=== PATIENT | female | born 1960 | race Caucasian/White ===

== ENCOUNTER → 2016-11-01 | Outpatient (CLI) | payer OTHER ==
[~2016-11-01] MED LIST: ACEPHEN650 MG PR; FAMOTIDINE PO; FERRO-TIME325 MG PO; FERROUS GLUCON324 M2; MAPAP325 M1 PO; PROTONIX PO
--- NOTE | ~2016-11-01 | MY6 ---
[facility] A Service of [facility] RADIOLOGY TEXT RESULTS PATIENT: NITHYA ZHAO LOCATION: [facility] : 60 UNIT #: [id number] AGE: [address]: Armando Emerson MD SEX: F ORDER DR: [id number] [place], [place] [address] [id number] O MR#: [id number] Acc #: [id number] NAME: NITHYA ZHAO : 1960 SEX: F STUDY DATE/TIME: 11/01/2016 9:25 UNIT: [facility] ROOM: STUDY DESCRIPTION: MY Mammogram Dx Dig [place] Attending Physician: Armando Emerson M.D. Ordering Physician: Armando Emerson M.D. Primary Care Physician: Armando Emerson M.D. MEDICAL IMAGING REPORT This report is preliminary unless electronic signature is present EXAQM Bilateral digital diagnostic mammogram INDICATIONS Focal asymmetry in the right breast and calcifications in the left breast on screening mammogram. TECHNIQUE Bilateral CC and MLO views. Spot compression views of the right breast in the CC and MLO projections and spot magnification views of the left breast in the CC and true lateral projection. Images obtained on a digital mammography unit FDA-approved CAD device utilized. COMPARISON 05/05/2016 FINDINGS Asymmetric tissue in the anterior right breast at the 12 o'clock position is not completely effaced, but has the appearance of benign breast tissue. No definite mass is seen. Focal calcifications in the upper outer quadrant of the left breast have a benign coarse morphology and there is no associated mass seen. Scattered fibroglandular density. Targeted ultrasound of the right breast shows some dense breast tissue in this region but no suspicious mass. IMPRESSION Benign bilateral diagnostic mammogram. Recommend patient continue with yearly screening. [facility] A Service [facility] RADIOLOGY TEXT RESULTS PATIENT: NITHYA ZHAO LOCATION: [facility] : 60 UNIT #: [id number] AGE: [address]: Armando Emerson MD SEX: F ORDER DR: Patient's over the age of 40 are entered into a reminder system with target due date for the next mammogram. A result letter will be sent to the patient. BIRADS: 2 Benign findings. Dictated by... Shaggy Xie M.D. THIS IS AN ELECTRONICALLY VERIFIED REPORT Shaggy Xie M.D. at 11/02/2016 7:05 AM EED/to TD: 11/01/2016 13:18 JOB #: [id number] MEDICAL IMAGING REPORT Page 1 of 1 COPY
--- NOTE | ~2016-11-01 | US24 ---
[facility] A Service of [facility] RADIOLOGY TEXT RESULTS PATIENT: NITHYA ZHAO LOCATION: [facility] : 60 UNIT #: [id number] AGE: [address]: Armando Emerson MD SEX: F ORDER DR: [id number] [facility] [address] [place], [place] [address] [id number] O MR#: [id number] Acc #: [id number] NAME: NITHYA ZHAO : 1960 SEX: F STUDY DATE/TIME: 11/01/2016 10:09 UNIT: [facility] ROOM: STUDY DESCRIPTION: US Breast Unilateral Attending Physician: Armando Emerson M.D. Ordering Physician: Armando Eemrson M.D. Primary Care Physician: Armando Emerson M.D. MEDICAL IMAGING REPORT This report is preliminary unless electronic signature is present EXAM Right breast ultrasound INDICATION Mammographic abnormality. PROCEDURE Shabazz-scale imaging of the right breast 12 o'clock in area of concern. COMPARISON Concurrently performed diagnostic mammogram. FINDINGS/IMPRESSION Refer to separately dictated diagnostic mammogram for work-up findings and recommendations. BIRADS: 2 Benign findings Dictated by... Shaggy Xie M.D. THIS IS AN ELECTRONICALLY VERIFIED REPORT Shaggy Xie M.D. at 11/02/2016 7:05 AM LUMA/rachel TD: 11/01/2016 13:54 JOB #: [id number] MEDICAL IMAGING REPORT Page 1 of 1 COPY
== END | disposition home or self-care (01) ==
LOC: CMAM 08:54
DX: R92.8 Other abnormal and inconclusive findings on diagnostic imaging of breast (principal)
CPT/HCPCS: 76641; G0204

== ENCOUNTER → 2017-04-17 | Day surgery (SDC) | payer OTHER ==
--- NOTE | ~2017-04-17 | OR ---
Unit #: [id number] #: [id number] Patient: NITHYA ZHAO [id number] [place], [place] [address] [id number] O MR#: [id number] NAME: NITHYA ZHAO ROOM: Date of Procedure: 04/17/2017 Admission Date: 04/17/2017 Surgeon: Cesar Vera M.D. : 1960 Attending Physician: Cesar Vera M.D. Primary Care Physician: Armando Emerson M.D. OPERATIVE REPORT PREOPERATIVE DIAGNOSES Iron-deficiency anemia and history of melena. She also has history of ulcer disease in the past. PROCEDURES PERFORMED Upper gastrointestinal endoscopy and a push enteroscopy along with biopsies. POSTOPERATIVE DIAGNOSES The patient had a paraesophageal hiatus hernia, otherwise examination was normal up to proximal jejunum. No mucosal abnormalities were present. Biopsies obtained from the duodenum to look for any evidence of partial villous atrophy or celiac disease. RECOMMENDATIONS The patient will continue on iron therapy. She will be followed up in the office in 8 to 10 weeks' time. In addition, we matthew her blood for hemoglobin and iron studies today. SEDATION USED MAC. DESCRIPTION OF PROCEDURE Following detailed explanation of the potential risks and complications of an upper endoscopy and push enteroscopy, namely perforation, bleeding, and complications related to sedation, the patient was brought to GI lab and laid in the left lateral decubitus position. A pediatric colonoscopy was used for push enteroscopy. Lubricated tip of the Olympus video scope was advanced to the oral cavity and the esophagus. Entire esophageal mucosa was examined and appeared normal. Z-line was nicely demarcated. There being no esophagitis. The patient however did have a paraesophageal hiatus hernia. The scope was then advanced into the gastric cavity and the latter was insufflated. Mucosa of the fundus, body, and antrum was examined and appeared unremarkable. Pylorus was intubated with visualization of the normal duodenal bulb and second and third part of the duodenum. The scope was then navigated past the duodenum into the proximal jejunum and couple of loops of proximal jejunum were intubated and appeared normal. No angiodysplasias were seen. Upon withdrawal and retroflexion in the antrum, no additional findings noted. Biopsies obtained from the deep descending duodenal folds to look for any evidence of partial villous atrophy or celiac disease. The scope was then withdrawn in the distal esophagus. The entire esophageal mucosa was Unit #: [id number] #: [id number] Patient: NITHYA ZHAO examined all the way up to pharynx. No additional findings noted. The patient tolerated the procedure without any postprocedure complications. Dictated by... Clotilde Rivas/shemar TD: 04/17/2017 11:27 JOB #: [id number] OPERATIVE REPORT Page 1 of 1 X Cesar Vera MD X PROCEDURE OPERATIVE NOTE
[2017-04-17 09:02] LABS: BASOPHIL# 0.1 X10e3 (0-0.3); BASOPHIL% 1.1 % (0-2.5); EOSINOPHIL# 0.2 X10e3 (0-0.7); HEMOGLOBIN 8.8 gm/dL (12.0-16.0); LYMPHOCYTE% 18.5 % (17.0-45.0); MEAN CELL VOLUME 67.6 FL (83-96); MEAN CORPUSCULAR HEMOGLOBIN 20.5 PG (28-34); MEAN CORPUSCULAR HGB CONC 30.3 g/dL (30-36); MEAN PLATELET VOLUME 6.9 FL (6.5-11.5); MONOCYTE# 0.4 X10e3 (0-1.0); MONOCYTE% 8.1 % (3.0-12.0); NEUTROPHIL# 3.8 X10e3 (1.5-7.1); NEUTROPHIL% 68.3 % (40-75); PLATELET COUNT 391 X10e3 (140-420); RED BLOOD COUNT 4.29 X10e (3.90-5.30); RED CELL DISTRIBUTION WIDTH 20.2 % (11.0-15.5); WHITE BLOOD COUNT 5.5 X10e3 (4.0-10.5)
[2017-04-17 09:09] LABS: DIFF IND NO
[2017-04-17 09:58] LABS: IRON SERUM 5 ug/dL (28-170); TOTAL IRON BINDING CAPACITY 410 ug/dL (269-535); TRANSFERRIN 293 mg/dL (192-382); TRANSFERRIN SATURATION 1 % (20-50)
== END | disposition home or self-care (01) ==
LOC: COPS 05:51
PROVIDERS: Internal Medicine Gastroenterology
DX: K52.9 Noninfective gastroenteritis and colitis, unspecified (principal); D50.9 Iron deficiency anemia, unspecified; K44.9 Diaphragmatic hernia without obstruction or gangrene; K21.9 Gastro-esophageal reflux disease without esophagitis; F17.210 Nicotine dependence, cigarettes, uncomplicated; Z87.19 Personal history of other diseases of the digestive system; Z79.899 Other long term (current) drug therapy; Z96.652 Presence of left artificial knee joint
CPT/HCPCS: 82728; 83540; 83550; 85025; 88305